=== PATIENT | female | born 1990 | race Caucasian/White ===

== ENCOUNTER 2019-02-15 10:48 | Emergency (ER) | payer MEDICAID, SELFPAY ==
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
[2019-02-15] MEDS: Ibuprofen 600 MG TAB PO (11:10)
[2019-02-15] MEDS: Dexamethasone 10 MG/ML VIAL PO (11:15)
== END 2019-02-15 11:41 | disposition home or self-care (01) ==
PROVIDERS: Emergency Provider Physician Assistant
DX: J06.9 Acute upper respiratory infection, unspecified (principal); J02.9 Acute pharyngitis, unspecified
CPT/HCPCS: 87880; 99283; 87081; J1100

== ENCOUNTER 2019-06-02 03:20 | Outpatient (CLI) | payer MEDICAID, SELFPAY ==
[2019-06-02 14:01] LABS: Anion Gap 11.4 mmol/L (3-11); BUN 7 mg/dL (7-18); CO2 26.6 mmol/L (21.0-32.0); CREATININE 0.64 mg/dL (0.55-1.02); Calcium 8.9 mg/dL (8.5-10.1); Calculated LDL 70 mg/dL (<100); Chloride 104 mmol/L (98-107); Cholesterol 124 mg/dL (<200); Glucose 86 mg/dL (74-106); HDL Cholesterol 43 mg/dL (40-60); Potassium 4.2 mmol/L (3.5-5.1); Sodium 142 mmol/L (136-145); Triglyceride 59 mg/dL (<150)
== END 2019-06-02 03:40 ==
DX: Z13.220 Encounter for screening for lipoid disorders (principal); Z00.00 Encounter for general adult medical examination without abnormal findings
CPT/HCPCS: 36415; 80048; 80061

== ENCOUNTER 2019-10-25 09:23 | Emergency (ER) | payer MEDICAID, SELFPAY ==
[2019-10-25 09:31] VITALS: BP 131/84; PULSE 96; RESP 20; TEMP 36.8; O2SAT 100
--- NOTE | 2019-10-25 09:43 | ED.GENADUL_ITS ---
Discharge Plan Disposition Patient Disposition: HOME Condition: Stable Discharge Details Chief Complaint: RespSymp Clinical Impression: Acute asthma exacerbation, Bronchitis, Smoker Primary Care Provider: Dorinda Palmer ED Provider: Esequiel Perez Home Meds and New Rx's Prescriptions: New prednisone 20 mg tablet 40 mg PO DAILY Qty: 8 RF: 0 doxycycline hyclate 100 mg capsule 100 mg PO BID Qty: 13 RF: 0 Continued meclizine 12.5 mg tablet 25 mg PO QID PRNRF: 0 Advair HFA 45-21 mcg/actuation HFA aerosol inhaler 2 puff IH Q12H Qty: 8 RF: 3 lorazepam 0.5 mg tablet 0.25 mg PO BID PRN (Reason: anxiety) Qty: 20 RF: 0 cetirizine 10 mg tablet 10 mg PO DAILY Qty: 90 RF: 3 montelukast 10 mg tablet 10 mg PO QHS Qty: 90 RF: 3 ibuprofen 800 mg tablet 800 mg PO TID PRN (Reason: headache) Qty: 60 RF: 2 No Action albuterol sulfate 90 mcg/actuation HFA aerosol inhaler 2 puff IH Q4H PRN (Reason: shortness of breath or wheezing) Qty: 8 RF: 3 dextroamphetamine-amphetamine 20 mg capsule,extended release 24hr 20 mg PO QAM MDD 20MG Qty: 30 RF: 0 Discharge Instructions Instructions: Asthma (ED), How to Stop Smoking (ED), Acute Bronchitis (ED) Additional Instructions: Please stop smoking now. Now is the time. Drink plenty of fluids and allow for plenty of rest. Please contact your primary care physician to arrange follow-up. Return to the ER for any worsening or new concerning symptoms. Stand Alone Forms: PENDING COVID-19 TESTING, Work Release Referrals: Dorinda Palmer NP [Primary Care Provider] - Discharge Data Discharge Date/Time-TO BE ENTERED AT DEPARTURE: 10/25/19 10:55 Medical Decision Making 9:50 -- 29-year-old female smoker with history of asthma here with cough, chills this morning, intermittent shortness of breath. Patient is saturating well, no respiratory distress, no wheeze but does have some rales left base. Consider infectious etiology including pneumonia versus bronchitis versus COVID-19. Plan to check COVID-19 test. Will obtain x-ray to assess for pneumonia. Suspect mild asthma exacerbation. I will give prednisone and start doxycycline. --Chest x-ray was reviewed and interpreted by me: No area of consolidation. Patient remained stable. Plan for discharge with outpatient follow-up. I will continue prednisone and doxycycline for treatment of acute bronchitis in the setting of asthma. COVID-19 test pending at time of discharge. Usual and customary discharge instructions were reviewed with the patient. HPI General Mode of arrival: ambulatory . Date/Time Provider Initiated Documentation: 10/25/19 09:33 . Limitations to Documentation: no limitations . Information obtained by: patient . HPI Narrative: 29-year-old female with his tory of asthma here with cc cough. Cough is been persistent over the past 5 days. She notes productive of blood-tinged sputum today. She has associated chills this morning. Feels generally ill. She notes some associated shortness of breath intermittent and improves with albuterol inhaler. Symptoms are moderate. No other modifiers. Patient does note exposure to [id number] who tested negative for COVID-19 but did have exposure himself to someone who was positive for COVID-19. Related Data Home Medications Medication Instructions Recorded Confirmed meclizine 12.5 mg tablet 25 mg PO QID PRN tab 12/18/17 10/31/19 fluticasone propionate 45 2 puff IH Q12H #8 gm 06/08/19 10/31/19 mcg-salmeterol 21 mcg/actuation HFA inhaler cetirizine 10 mg tablet 10 mg PO DAILY #90 tab 09/07/19 10/31/19 lorazepam 0.5 mg tablet 0.25 mg PO BID PRN #20 tab 09/07/19 10/31/19 montelukast 10 mg tablet 10 mg PO QHS #90 tab 09/07/19 10/31/19 ibuprofen 800 mg tablet 800 mg PO TID PRN #60 tab 10/04/19 10/31/19 doxycycline hyclate 100 mg PO BID #13 cap 10/25/19 10/31/19 prednisone 40 mg PO DAILY #8 tab 10/25/19 10/31/19 albuterol sulfate 90 mcg/actuation 2 puff IH Q4H PRN #8 gm 10/28/19 10/28/19 aerosol inhaler dextroamphetamine-amphetamine ER 20 mg PO QAM #30 cap MDD 20MG 10/28/19 10/28/19 20 mg 24hr capsule,extend release Previous Rx's Medication Instructions Recorded fluticasone propionate 45 2 puff IH Q12H #8 gm 06/08/19 mcg-salmeterol 21 mcg/actuation HFA inhaler cetirizine 10 mg tablet 10 mg PO DAILY #90 tab 09/07/19 lorazepam 0.5 mg tablet 0.25 mg PO BID PRN #20 tab 09/07/19 montelukast 10 mg tablet 10 mg PO QHS #90 tab 09/07/19 ibuprofen 800 mg tablet 800 mg PO TID PRN #60 tab 10/04/19 doxycycline hyclate 100 mg PO BID #13 cap 10/25/19 prednisone 40 mg PO DAILY #8 tab 10/25/19 albuterol sulfate 90 mcg/actuation 2 puff IH Q4H PRN #8 gm 10/28/19 aerosol inhaler dextroamphetamine-amphetamine ER 20 mg PO QAM #30 cap MDD 20MG 10/28/19 20 mg 24hr capsule,extend release Allergies Allergy/AdvReac Type Severity Reaction Status Date / Time No Known Allergies Allergy Verified 10/25/19 09:36 General Stated Complaint: RespSymp KLAUS: 2 Review of Systems All systems reviewed & are unremarkable except as noted in HPI and below Cardiovascular Cardiovascular: Reports dyspnea Respiratory Respiratory: Reports cough and Reports dyspnea PFSH Social History Smoking/Tobacco Use Status: Current every day Tobacco Type: e-cigarettes Quit status: considering quitting Second Hand Exposure: Yes Alcohol Intake: current Alcohol Intake frequency: 0-2 drinks per day Alcohol type: beer Drug use: Rarely Substance use type: marijuana Counseling given: No Counseling provided: none Caregiver/Support person: No Household members: significant other Housing: house Communication Needs: None Do you need help understanding health information?: Never 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 Pets and animals: Yes Pets and animals: cat(s) and dog(s) Sexually active: Yes Do you think of yourself as: straight/heterosexual Current gender identity: female What is your relationship status?: living with partner How often do you talk on the phone with friends or family?: three or more times per week How often do you get together with friends or relatives?: once per week How often do you attend evangelical or lutheran services?: decline to answer Do you belong to any clubs or organized social groups?: no Panel score (0-1 are the most socially isolated patients): 2 What type of physical activity do you participate in: walking Duration: 60-90 minutes/day Frequency: daily Adry/Jehovah'S Witness: Other Special adry needs: No Seatbelt use: always Helmet use: Yes Helmet use: always Drive intox or ride w/intox shuttle bus driver: No Do you feel safe in your relationship?: Yes Exam Const General: cooperative and no acute distress HENMT Mouth: moist mucous membranes Eyes Conjunctivae: normal conjunctivae Sclera: normal sclerae Neck Neck: trachea midline and supple Resp Effort & Inspection: normal respiratory effort, able to speak in complete sentences and cough Auscultation: rales on the left, no rhonchi and no wheezes Cardio Jugular venous pressure: no JVD Rate: regular rate and not tachycardic Rhythm: regular rhythm GI Palpation: soft, not firm, no guarding, no masses, not rigid and nontender Skin General skin exam: no rashes or lesions noted Neuro General: patient alert, patient awake, patient oriented x3 and tone normal Extrem General: no edema Psych Appearance: grossly normal Mental Status: mental status grossly normal Course Vital Signs Vital signs: Vital Signs Temperature 36.8 C 10/25/19 09:31 Pulse 96 H 10/25/19 09:31 Respiratory Rate 20 10/25/19 09:31 Blood Pressure 131/84 10/25/19 09:31 Pulse Oximetry 100 10/25/19 09:31 Temperature 36.8 C 10/25/19 09:31 Temperature Source Skin 10/25/19 09:31 Pulse 96 H 10/25/19 09:31 Respiratory Rate 20 10/25/19 09:31 Respiratory Effort Non-Labored 10/25/19 09:36 Respiratory Depth Normal 10/25/19 09:36 Blood Pressure 131/84 10/25/19 09:31 Blood Pressure Position Sitting 10/25/19 09:31 Pulse Oximetry 100 10/25/19 09:31 Oxygen Delivery Method Room Air 10/25/19 09:31 Oxygen Flow Rate 0 10/25/19 09:31 Pain Level 4 10/25/19 09:31
[2019-10-25] MEDS: predniSONE 20 MG TAB 60 MG PO (09:47)
[2019-10-25] MEDS: Doxycycline Hyclate 100 MG CAP PO (09:47)
--- NOTE | 2019-10-25 10:20 | DI.RAD_ITS ---
EXAM: XR PORTABLE CHEST AP CLINICAL HISTORY: cough TECHNIQUE: 2D digital imaging was performed. COMPARISON: No exams were available for comparison FINDINGS: MEDIASTINUM: Normal. HEART: Normal. PULMONARY VASCULATURE: Normal. LUNGS: Clear. PLEURAL SPACE: No pleural effusion or pneumothorax. BONE:Normal. OTHER FINDINGS:Normal. IMPRESSION: No acute pulmonary findings. DATA REPOSITORY: RADIATION DOSE DELIVERED:
[2019-10-25 10:35] VITALS: BP 134/68; PULSE 82; RESP 16; TEMP 36.7; O2SAT 99
[2019-10-29 18:11] LABS: SARS-CoV-2 RNA Undetected (Undetected); SARS-CoV-2 Specimen Source Nasopharynx
== END 2019-10-25 10:55 | disposition home or self-care (01) ==
PROVIDERS: Emergency Provider Student in an Organized Health Care Education/Training Program
DX: J45.901 Unspecified asthma with (acute) exacerbation (principal); J20.9 Acute bronchitis, unspecified; F17.210 Nicotine dependence, cigarettes, uncomplicated; Z11.59 Encounter for screening for other viral diseases
CPT/HCPCS: 99284; U0003; 71045; J7512

== ENCOUNTER 2020-06-13 14:26 | Outpatient (REF) | payer MEDICAID, SELFPAY ==
--- NOTE | 2020-06-13 11:00 | PAPFT_PTH ---
PATIENT: Thalia Nieves LOC: [facility] U#:[id number] AGE/SX: 29/F ROOM: RE06/13/[address]: Dorinda Palmer APRN : 1990 BED: DIS: 06/13/2020 SPEC #: [id number] RECD: 06/14/20 12:57 STATUS: JUVENAL ONEIL #: [id number] MELISSA: 06/13/20 11:[address]: Dorinda Palmer DEPT: [facility] Cytology RECD BY: Ana Jenkins Tissues: 1 - CX/ENDOCX FOR PAP SMEARS Procedures: PAP THIN PREP/UVM Screening Comments: [id number]
== END 2020-06-13 14:27 | disposition home or self-care (01) ==
LOC: LBN 14:26
DX: Z12.4 Encounter for screening for malignant neoplasm of cervix (principal)
CPT/HCPCS: 88142

== ENCOUNTER 2022-04-29 14:32 | Outpatient (CLI) | payer MEDICAID, SELFPAY ==
--- NOTE | 2022-04-29 14:30 | RT.EKG_ITS ---
APPROVED REPORT Exam: Resting ECG Reason for Exam: medication review Patient Location: O HR:61 bpm ECG Measurements Heart Rate 61 AXIS NE 146 P 15 QRSd 81 QRS 56 QT 391 T 44 QTc 394 Conclusion Sinus arrhythmia...V-rate 51- 69, variation>10% Normal Electrocardiogram
== END 2022-04-29 14:33 | disposition home or self-care (01) ==
LOC: DI.CM 14:34
PROVIDERS: PCP Nurse Practitioner Family; Visit Provider Nurse Practitioner Family
DX: Z79.899 Other long term (current) drug therapy (principal)
CPT/HCPCS: 93010

== ENCOUNTER 2022-06-18 01:38 | Outpatient (CLI) | payer MEDICAID, SELFPAY ==
--- NOTE | 2022-06-18 13:24 | DI.RAD_ITS ---
Exam(s) XR HIP PELVIS ADULT BL EXAM: XR HIP PELVIS ADULT BL CLINICAL HISTORY: chronic pain,trochanteric bursitis both hips,m70.61,m70.62. TECHNIQUE: 2D digital imaging was performed. COMPARISON: No exams were available for comparison FINDINGS: Five views: No evidence pelvic hip fracture. No hip joint space narrowing. SI joints unremarkable. Bone densit y is normal. No osseous lesions. IMPRESSION: No significant osseous findings pelvis and hips. DATA REPOSITORY: RADIATION DOSE DELIVERED:
== END 2022-06-18 01:58 ==
PROVIDERS: PCP Nurse Practitioner Family; Visit Provider Nurse Practitioner Family
DX: M70.61 Trochanteric bursitis, right hip (principal); M70.62 Trochanteric bursitis, left hip
CPT/HCPCS: 73521

== ENCOUNTER 2022-06-28 01:59 | Outpatient (CLI) | payer MEDICAID, SELFPAY ==
[2022-06-28 10:59] LABS: ALT 35 U/L (14-59); AST 21 U/L (15-37); Albumin 4.2 g/dL (3.4-5.0); Alkaline Phosphatase 61 U/L (46-116); Anion Gap 6.2 mmol/L (3-11); BUN 9 mg/dL (7-18); Bilirubin, Total 0.4 mg/dL (0.2-1.0); CO2 26.8 mmol/L (21.0-32.0); CREATININE 0.8 mg/dL (0.55-1.02); Calcium 9.3 mg/dL (8.5-10.1); Chloride 104 mmol/L (98-107); Estimated GFR 101.59 (mL/min/1.73m2); Glucose 89 mg/dL (74-106); Potassium 4.2 mmol/L (3.5-5.1); Sodium 137 mmol/L (136-145); Total Protein 7.1 g/dL (6.4-8.2)
== END 2022-06-28 02:00 | disposition home or self-care (01) ==
LOC: LBO 01:59
PROVIDERS: PCP Nurse Practitioner Family; Visit Provider Nurse Practitioner Family
DX: F90.2 Attention-deficit hyperactivity disorder, combined type; Z00.00 Encounter for general adult medical examination without abnormal findings
CPT/HCPCS: 36415; 80053

== ENCOUNTER 2023-08-06 11:44 | Outpatient (REF) | payer MEDICAID, SELFPAY ==
--- NOTE | 2023-08-06 11:15 | PAPFT_PTH ---
PATIENT: Thalia Nieves LOC: [facility] U#:[id number] AGE/SX: 33/F ROOM: RE08/06/[address]: Janusz Rojas DNP : 1990 BED: DIS: 08/06/2023 SPEC #: [id number] RECD: 08/06/23 12:59 STATUS: JUVENAL REAmaris #: [id number] MELISSA: 08/06/23 11:[address]: Janusz Pearson DEPT: [facility] [place] Cytology RECD BY: Ana Jenkins Tissues: 1 - CX/ENDOCX FOR PAP SMEARS Procedures: PAP THIN PREP/UVM Screening HPV DNA PROBE Comments: [id number]
== END 2023-08-06 11:45 | disposition home or self-care (01) ==
LOC: LBN 11:44
PROVIDERS: PCP Nurse Practitioner Family; Visit Provider Nurse Practitioner Family
DX: Z11.51 Encounter for screening for human papillomavirus (HPV) (principal); Z01.419 Encounter for gynecological examination (general) (routine) without abnormal findings
CPT/HCPCS: 88142; 87624

== ENCOUNTER 2024-08-19 14:22 | Outpatient (REF) | payer MEDICAID, SELFPAY | END 2024-08-19 14:23 | disposition home or self-care (01) | LOC: LBN 14:22 | PROVIDERS: PCP Nurse Practitioner Family; Visit Provider Physician Assistant Medical | DX: J02.9 Acute pharyngitis, unspecified (principal) | CPT/HCPCS: 87070 ==

== ENCOUNTER 2025-02-02 12:42 | Outpatient (CLI) | payer BC, MEDICAID, SELFPAY ==
--- NOTE | 2025-02-02 | DI.RAD_ITS ---
Exam(s) XR CHEST 2V PA LATERAL EXAM: XR CHEST 2V PA LATERAL CLINICAL HISTORY: J20.9 Acute bronchitis,w/bronchospasm TECHNIQUE: 2D digital imaging was performed of the chest. Two images were obtained. PA and lateral views were obtained. COMPARISON: CR XR PORTABLE CHEST AP from 10/25/2019 FINDINGS: MEDIASTINUM: Normal. HEART: Normal. PULMONARY VASCULATURE: Normal. LUNGS: Clear. PLEURAL SPACE: No pleural effusion or pneumothorax. BONE:Within normal limits for the patient's age. OTHER FINDINGS:Normal. IMPRESSION: No acute pulmonary findings. DATA REPOSITORY: RADIATION DOSE DELIVERED:
== END 2025-02-02 13:02 ==
PROVIDERS: PCP Nurse Practitioner Family; Visit Provider Physician Assistant Medical
DX: J20.9 Acute bronchitis, unspecified (principal)
CPT/HCPCS: 71046